=== PATIENT | female | born 1985 | race Caucasian/White ===

== ENCOUNTER 2017-07-31 21:19 | Emergency (ER) | payer OTHER ==
[~2017-07-31] VITALS: Ht 170.2 cm; Wt 100.0 kg
[2017-07-31 21:30] VITALS: BP 169/87; PULSE 76; RESP 18; TEMP 98.4; O2SAT 98
--- NOTE | 2017-07-31 22:07 | PD ---
HPI Chief Complaint: Psychiatric Symptoms Time Seen by Provider: 21:46 Travel History International Travel<30 days: No Contact w/Intl Traveler<30days: No Traveled to known affect area: No History of Present Illness HPI 32-year-old female presents to the ED under Cedeño act for making suicidal statements. On presentation the patient endorses making the statements but denies SI. Also denies hallucinations or homicidal ideation. She states that she is in the middle of divorce and currently undergoing custody issues with her children. She states that she told her future ex- that if she did not get custody of the children she would kill herself. She denies psychiatric history or previous gastric hospitalization. She endorses history of hypothyroidism, hyperlipidemia and hypertension. She endorses compliance with her medications. She has no somatic complaints. She denies cigarette smoking, illicit drug use or alcohol use. [facility] Past Medical History Cardiovascular Problems: Yes (HTN, CHOLESTEROL) LMP: 07/19/2017 Social History Tobacco Use: No Allergies-Medications (Allergen,Severity, Reaction): Coded Allergies: No Known Allergies (Unverified , 07/31/17) Reported Meds & Prescriptions Reported Meds & Active Scripts Active Reported Hydrochlorothiazide 25 Mg Tab 25 Mg PO DAILY Synthroid (Levothyroxine Sodium) 100 Mcg Tab 100 Mcg PO DAILY Pravastatin 10 Mg Tab Unknown Dose PO DAILY Aspirin 81 Mg Chew 81 Mg CHEW DAILY Gemfibrozil 600 Mg Tab 600 Mg PO DAILYAC Take 30 minutes prior to breakfast and dinner. Losartan (Losartan Potassium) 50 Mg Tab 50 Mg PO DAILY Review of Systems Except as stated in HPI: all other systems reviewed are Neg Physical Exam Narrative GENERAL: Well-nourished, well-developed obese white female no acute distress. PSYCH: Calm, cooperative. Occasionally tearful. SKIN: Focused skin assessment warm/dry. HEAD: Normocephalic. EYES: No scleral icterus. No injection or drainage. NECK: Supple, trachea midline. No JVD or lymphadenopathy. CARDIOVASCULAR: Regular rate and rhythm without murmurs, gallops, or rubs. RESPIRATORY: Breath sounds clear and equal bilaterally. No accessory muscle use. GASTROINTESTINAL: Abdomen soft, non-tender, nondistended. Active bowel sounds. MUSCULOSKELETAL: No cyanosis, or edema. Walks with a normal gait. BACK: Nontender without obvious deformity. No CVA tenderness. Data Data Last Documented VS Vital Signs Date Time Temp Pulse Resp B/P (MAP) Pulse Ox O2 Delivery O2 Flow Rate FiO2 07/31/17 21:30 98.4 76 18 169/87 (114) 98 Orders Orders Complete Blood Count With Diff (07/31/17 21:46) Comprehensive Metabolic Panel (07/31/17 21:46) Thyroid Stimulating Hormone (07/31/17 21:46) Psych Screen (07/31/17 21:46) Drug Screen, Random Urine (07/31/17 21:46) Gemfibrozil (Lopid) (08/01/17 07:00) Labs Laboratory Tests Test 07/31/17 21:59 White Blood Count 7.1 TH/MM3 Red Blood Count 4.71 MIL/MM3 Hemoglobin 14.0 GM/DL Hematocrit 40.5 % Mean Corpuscular Volume 86.0 FL Mean Corpuscular Hemoglobin 29.8 PG Mean Corpuscular Hemoglobin Concent 34.7 % Red Cell Distribution Width 12.7 % Platelet Count 200 TH/MM3 Mean Platelet Volume 9.2 FL Neutrophils (%) (Auto) 58.3 % Lymphocytes (%) (Auto) 31.5 % Monocytes (%) (Auto) 7.7 % Eosinophils (%) (Auto) 1.9 % Basophils (%) (Auto) 0.6 % Neutrophils # (Auto) 4.2 TH/MM3 Lymphocytes # (Auto) 2.2 TH/MM3 Monocytes # (Auto) 0.5 TH/MM3 Eosinophils # (Auto) 0.1 TH/MM3 Basophils # (Auto) 0.0 TH/MM3 CBC Comment DIFF FINAL Differential Comment Urine Opiates Screen NEG Urine Barbiturates Screen NEG Urine Amphetamines Screen NEG Urine Benzodiazepines Screen NEG Urine Cocaine Screen NEG Urine Cannabinoids Screen NEG MDM Medical Decision Making Medical Screen Exam Complete: Yes Emergency Medical Condition: Yes Differential Diagnosis Adjustment disorder versus anxiety versus bipolar versus depression versus dementia versus electrolyte disorder versus malingering versus mood disorder versus ODD versus psychosis versus PTSD versus schizophrenia versus schizoaffective disorder versus substance-induced mood disorder versus other Narrative Course 32-year-old female presents to the ED under Cedeño act for making suicidal statements. On presentation the patient endorses making the statements but denies SI. Also denies hallucinations or homicidal ideation. She states that she is in the middle of divorce and currently undergoing custody issues with her children. She states that she told her future ex- that if she did not get custody of the children she would kill herself. She denies psychiatric history or previous gastric hospitalization. She endorses history of hypothyroidism, hyperlipidemia and hypertension. She endorses compliance with her medications. She has no somatic complaints. She denies cigarette smoking, illicit drug use or alcohol use. Vitals reviewed. Physical exam is reassuring. Patient is calm and cooperative throughout the interview. No concerning abnormalities a CBC, CMP. Tox screen negative. Patient denies risk of , endorses tubal ligation. She is medically cleared for psychiatric evaluation. Cheyenne Vela Jul 31, 2017 22:07
[2017-07-31] MEDS ORDERED: HYDR25TA5 PO (22:17)
[2017-07-31] MEDS ORDERED: GEMF600T PO (22:17)
[2017-07-31] MEDS ORDERED: PRAV10TA PO (22:17)
[2017-07-31] MEDS ORDERED: ASPI-516 CHEW (22:17)
[2017-07-31] MEDS ORDERED: LEVO.1 PO (22:17)
[2017-07-31] MEDS ORDERED: LOSA50TA PO (22:17)
[2017-07-31 22:23] LABS: AUTOMATED NEUTROPHIL # 4.2 TH/MM3 (1.8-7.7); BASOPHIL % 0.6 % (0.0-2.0); EOSINOPHIL # 0.1 TH/MM3 (0-0.4); EOSINOPHIL % 1.9 % (0.0-4.0); HEMATOCRIT 40.5 % (35.0-46.0); LYMPH % 31.5 % (9.0-44.0); LYMPHOCYTE # 2.2 TH/MM3 (1.0-4.8); MEAN CORPUSCULAR HEMOGLOBIN 29.8 PG (27.0-34.0); MEAN CORPUSCULAR HGB CONC 34.7 % (32.0-36.0); MEAN PLATELET VOLUME 9.2 FL (7.0-11.0); MONO % 7.7 % (0.0-8.0); MONOCYTE # 0.5 TH/MM3 (0-0.9); NEUT % 58.3 % (16.0-70.0); PLATELET COUNT 200 TH/MM3 (150-450); RED BLOOD COUNT 4.71 MIL/MM3 (4.00-5.30); RED CELL DISTRIBUTION WIDTH 12.7 % (11.6-17.2); WHITE BLOOD COUNT 7.1 TH/MM3 (4.0-11.0)
[2017-07-31 22:29] VITALS: BP 117/59; PULSE 68; RESP 17; TEMP 98.3; O2SAT 99
[2017-07-31 22:51] LABS: ALBUMIN 4.2 GM/DL (3.4-5.0); ALT (GPT) 38 U/L (10-53); AST (GOT) 21 U/L (15-37); BLOOD UREA NITROGEN 10 MG/DL (7-18); CALCIUM 8.6 MG/DL (8.5-10.1); CHLORIDE 107 MEQ/L (98-107); CREATININE 0.71 MG/DL (0.50-1.00); GLOMERULAR FILTRATION RATE 95 ML/MIN (>89); GLUCOSE,RANDOM 105 MG/DL (74-106); SODIUM (NA) 141 MEQ/L (136-145)
[2017-07-31 23:01] LABS: ALKALINE PHOSPHATASE 68 U/L (45-117); TOTAL BILIRUBIN ADULT 0.6 MG/DL (0.2-1.0)
[2017-08-01] MEDS ORDERED: GEMFIBROZIL 600 MG TAB PO SCH (07:00)
[2017-08-01 07:04] VITALS: BP 135/75; PULSE 74; RESP 17; TEMP 97.9; O2SAT 100
--- NOTE | 2017-08-01 08:13 | PD ---
Data Data Last Documented VS Vital Signs Date Time Temp Pulse Resp B/P (MAP) Pulse Ox O2 Delivery O2 Flow Rate FiO2 08/01/17 07:04 97.9 74 17 135/75 (95) 100 Room Air Orders Orders Complete Blood Count With Diff (07/31/17 21:46) Comprehensive Metabolic Panel (07/31/17 21:46) Thyroid Stimulating Hormone (07/31/17 21:46) Psych Screen (07/31/17 21:46) Drug Screen, Random Urine (07/31/17 21:46) Gemfibrozil (Lopid) (08/01/17 07:00) Diet Regular Basic (08/01/17 Breakfast) Labs Laboratory Tests Test 07/31/17 21:59 White Blood Count 7.1 TH/MM3 Red Blood Count 4.71 MIL/MM3 Hemoglobin 14.0 GM/DL Hematocrit 40.5 % Mean Corpuscular Volume 86.0 FL Mean Corpuscular Hemoglobin 29.8 PG Mean Corpuscular Hemoglobin Concent 34.7 % Red Cell Distribution Width 12.7 % Platelet Count 200 TH/MM3 Mean Platelet Volume 9.2 FL Neutrophils (%) (Auto) 58.3 % Lymphocytes (%) (Auto) 31.5 % Monocytes (%) (Auto) 7.7 % Eosinophils (%) (Auto) 1.9 % Basophils (%) (Auto) 0.6 % Neutrophils # (Auto) 4.2 TH/MM3 Lymphocytes # (Auto) 2.2 TH/MM3 Monocytes # (Auto) 0.5 TH/MM3 Eosinophils # (Auto) 0.1 TH/MM3 Basophils # (Auto) 0.0 TH/MM3 CBC Comment DIFF FINAL Differential Comment Blood Urea Nitrogen 10 MG/DL Creatinine 0.71 MG/DL Random Glucose 105 MG/DL Total Protein 8.0 GM/DL Albumin 4.2 GM/DL Calcium Level 8.6 MG/DL Alkaline Phosphatase 68 U/L Aspartate Amino Transf (AST/SGOT) 21 U/L Alanine Aminotransferase (ALT/SGPT) 38 U/L Total Bilirubin 0.6 MG/DL Sodium Level 141 MEQ/L Potassium Level 3.8 MEQ/L Chloride Level 107 MEQ/L Carbon Dioxide Level 26.0 MEQ/L Anion Gap 8 MEQ/L Estimat Glomerular Filtration Rate 95 ML/MIN Thyroid Stimulating Hormone 3rd Gen 2.300 uIU/ML Urine Opiates Screen NEG Urine Barbiturates Screen NEG Urine Amphetamines Screen NEG Urine Benzodiazepines Screen NEG Urine Cocaine Screen NEG Urine Cannabinoids Screen NEG MDM Medical Record Reviewed: Yes Supervised Visit with CLOVER: No Narrative Course See previous providers notes for complete history of present illness. This patient has been seen by psychiatrist Dr. Joe and cleared by the psychiatry department. There is no medical issue that would warrant additional hospitalization. She is stable for discharge. Diagnosis Primary Impression: Adjustment disorder with depressed mood Med/Other Pt SpecificInfo: No Change to Meds Disposition: 01 DISCHARGE HOME Condition: Stable Camacho Vargas Aug 01, 2017 08:13
--- NOTE | 2017-08-02 10:57 | PD.PSY.CON ---
Provisional Diagnosis Admission Date [place] I. Adjustment disorder with depressed mood [place] II. Deferred [place] III. No significant medical history History of Present Illness Service Psychiatry Consult Requested By ER Reason for Consult Psychiatry Primary Care Physician Unknown HPI Patient was seen August 01, 2017 and 7:45 AM The patient is a 32-year-old woman, domiciled in [place] with her 3 kids , she is , employed, without any previous psychiatric history, no previous suicidal attempts, no previous psychiatric hospitalizations, no significant medical history, who was brought to the ED ED under Cedeño act for making suicidal statements. On presentation the patient endorses making the statements but denies SI. Also denies hallucinations or homicidal ideation. She states that she is in the middle of divorce and currently undergoing custody issues with her children. She states that she told her future ex- that if she did not get custody of the children she would kill herself. She denies psychiatric history or previous gastric hospitalization. She endorses history of hypothyroidism, hyperlipidemia and hypertension. She endorses compliance with her medications. She has no somatic complaints. She denies cigarette smoking, illicit drug use or alcohol use. On psychiatric evaluation today the patient is calm, cooperative, pleasant. The patient reports that being here is a misunderstood. Yesterday she had an argument with her ex- who was threatening her to keep her two daughter and go to court with her for her custody. She was very upset, to make her point she made a suicidal statement, "but I would never kill myself, I love my kids, I love life ". Patient states that her plan is to go to case picker her kids and go back to [place] with her mother. I had the chance to speak with her mother for collateral information. Her mother Maria Elena, explains that the patient is a very hard- working and good mother, who does not have any psychiatric history, had never tried to commit suicide or harm anybody, she was just upset yesterday. She would be very happy to come to the ER and case picker her daughter herself. Review of Systems Constitutional: DENIES: Diaphoretic episodes, Fatigue, Fever, Weight gain, Weight loss, Chills, Dizziness, Change in appetite, Night Sweats Endocrine: DENIES: Abnorml menstrual pattern, Heat/cold intolerance, Polydipsia , Polyuria, Polyphagia Eyes: DENIES: Blurred vision, Diplopia, Eye inflammation, Eye pain, Vision loss , Photosensitivity, Double Vision Ears, nose, mouth, throat: DENIES: Tinnitus, Hearing loss, Vertigo, Nasal discharge, Oral lesions, Throat pain, Hoarseness, Ear Pain, Running Nose, Epistaxis, Sinus Pain, Toothache, Odynophagia Respiratory: DENIES: Apneas, Cough, Snoring, Wheezing, Hemoptysis, Sputum production, Shortness of breath Cardiovascular: DENIES: Chest pain, Palpitations, Syncope, Dyspnea on Exertion , PND, Lower Extremity Edema, Orthopnea, Claudication Gastrointestinal: DENIES: Abdominal pain, Black stools, Bloody stools, Constipation, Diarrhea, Nausea, Vomiting, Difficulty Swallowing, Anorexia Genitourinary: DENIES: Abnormal vaginal bleeding, Dysmenorrhea, Dyspareunia, Sexual dysfunction, Urinary frequency, Urinary incontinence, Urgency, Hematuria , Dysuria, Nocturia, Vaginal discharge Musculoskeletal: DENIES: Joint pain, Muscle aches, Stiffness, Joint Swelling, Back pain, Neck pain Integumentary: DENIES: Abnormal pigmentation, Pruritus, Rash, Nail changes, Breast masses, Breast skin changes, Nipple discharge Hematologic/lymphatic: DENIES: Bruising, Lymphadenopathy Immunologic/allergic: DENIES: Eczema, Urticaria Neurologic: DENIES: Abnormal gait, Headache, Localized weakness, Paresthesias, Seizures, Speech Problems, Tremor, Poor Balance Psychiatric: DENIES: Anxiety, Confusion, Mood changes, Depression, Hallucinations, Agitation, Suicidal Ideation, Homicidal Ideation, Delusions Past Family Social History Coded Allergies: No Known Allergies (Unverified , 07/31/17) Reported Medications Hydrochlorothiazide (Hydrochlorothiazide) 25 Mg Tab, 25 MG PO DAILY, #30 TAB 0 Refills 07/31/17 Levothyroxine (Synthroid) 100 Mcg Tab, 100 MCG PO DAILY for Thyroid, #30 TAB 0 Refills 07/31/17 Pravastatin (Pravastatin) 10 Mg Tab, PO DAILY for Cholesterol Management, #30 TAB 0 Refills 07/31/17 Aspirin (Aspirin) 81 Mg Chew, 81 MG CHEW DAILY, TAB 0 Refills 07/31/17 Gemfibrozil (Gemfibrozil) 600 Mg Tab, 600 MG PO DAILYAC, #60 TAB 0 Refills Take 30 minutes prior to breakfast and dinner. 07/31/17 Losartan (Losartan) 50 Mg Tab, 50 MG PO DAILY for Blood Pressure Management, # 30 TAB 0 Refills 07/31/17 Family Psych History No family psychiatric history Social History Patient was born and raised in [place], she lives in [place] with her 3 kids, she is , she is employed, Physical Exam Vital Signs Vital Signs Date Time Temp Pulse Resp B/P (MAP) Pulse Ox O2 Delivery O2 Flow Rate FiO2 08/01/17 08:41 08/01/17 07:04 97.9 74 17 100 Room Air Mental Status Examination Appearance: Appropriate Consciousness: Alert Orientation: x4 Motor Activity: Normal gait Speech: Unremarkable Language: Adequate Fund of Knowledge: Adequate Attention and Concentration: Adequate Memory: Unremarkable Mood: Appropriate Affect: Appropriate Thought Process & Associations: Intact Thought Content: Appropriate Hallucination Type: None Delusion Type: None Suicidal Ideation: No Suicidal Plan: No Suicidal Intention: No Homicidal Ideation: No Homicidal Plan: No Homicidal Intention: No Insight: Adequate Judgment: Adequate Assessment & Plan Problem List: (1) Adjustment disorder with depressed mood ICD Codes: F43.21 - Adjustment disorder with depressed mood Assessment & Plan: On psychiatric evaluation today the patient does not present any neuropsychiatric symptoms that require an immediate psychiatric intervention. The patient denies symptomatology of depression, anxiety, guilherme or psychosis. The patient denies suicidal and homicidal ideation, she denies visual and auditory hallucinations. The patient is logical, coherent and relevant. Oriented 3. Patient reports that her recent suicidal statement was done in the context of frustration after her was threatening her to deprive her of the custody of her kids. Her mother was contacted for collateral or information, she agrees that the patient does not need to be admitted in psychiatry and she agrees that the patient is safe to be discharged. Extensive support, motivation and psychoeducation provided. Cedeño act will be lifted Assessment & Plan Estimated LOS: Renzo Carrasquillo MD Aug 02, 2017 10:57
== END 2017-08-01 08:47 | disposition home or self-care (01) ==
LOC: NEPJ 21:19
DX: F43.21 Adjustment disorder with depressed mood (principal); I10 Essential (primary) hypertension; E78.5 Hyperlipidemia, unspecified; E03.9 Hypothyroidism, unspecified; Z79.899 Other long term (current) drug therapy; Z79.82 Long term (current) use of aspirin
CPT/HCPCS: 80053; 80307; 84443; 85025; 99284